=== PATIENT | male | born 2000 | race Caucasian/White ===

== ENCOUNTER 2018-03-19 15:11 | Emergency (ER) | payer OTHER ==
[~2018-03-19] VITALS: Ht 167.6 cm; Wt 45.0 kg
[2018-03-19] MEDS ORDERED: IBUPROFEN 800 MG TABLET PO ONE (18:00)
[2018-03-19 18:20] VITALS: BP 128/89
== END 2018-03-19 18:25 | disposition home or self-care (01) ==
LOC: EMS 15:13
DX: S60.041A Contusion of right ring finger without damage to nail, initial encounter (principal); W23.0XXA Caught, crushed, jammed, or pinched between moving objects, initial encounter; Y93.89 Activity, other specified; Y92.89 Other specified places as the place of occurrence of the external cause; Y99.8 Other external cause status
CPT/HCPCS: 99284